=== PATIENT | female | born 1995 | race Caucasian/White ===

== ENCOUNTER 2020-02-29 22:18 | Emergency (ER) | payer BC ==
[2020-02-29] MEDS ORDERED: METHYLPREDNISOLONE INJ 125 MG/2 ML SDV IV ONE (22:25)
[2020-02-29] MEDS ORDERED: FAMOTIDINE INJ/PF 20 MG/2 ML SDV IV ONE (22:25)
[2020-02-29] MEDS ORDERED: DIPHENHYDRAMINE HCL 50 MG/ML VIAL IV ONE (22:26)
--- NOTE | 2020-02-29 22:27 | ER Document Report ---
ED Medical Screen (RME) - General Stated Complaint: ALLERGIC REACTION Time Seen by Provider: 02/29/20 22:25 Notes: HPI: 24-year-old female presenting for generalized hives, sensation of throat closing, swelling around the mouth. Ate a new restaurant tonight. Only allergy otherwise his cats no medication allergies. Took 1 Benadryl at home. Symptoms started about an hour ago. PHYSICAL EXAMINATION: Patient with erythema and very slight swelling to the lips. She has generalized hives over the neck and anterior chest. No stridor. Phonation is normal. Lung sounds are clear to auscultation without wheezing. No uvula edema. Discussed with [place] charge nurse regarding need for placement I have greeted and performed a rapid initial assessment of this patient. A comprehensive ED assessment and evaluation of the patient, analysis of test results and completion of medical decision making process will be conducted by an additional ED providers.
[2020-02-29] MEDS ORDERED: EPINEPHRINE INJ/PF 1 MG/1 ML AMPULE IM ONE (22:48)
--- NOTE | 2020-02-29 22:49 | ER Document Report ---
ED Allergic Reaction - General Chief Complaint: Allergic Reaction Stated Complaint: ALLERGIC REACTION Time Seen by Provider: 02/29/20 22:25 Primary Care Provider: [facility] [Provider Group] - Follow up in 3-5 days (for outpatient follow up) - HPI Notes: 24-year-old female to the emergency department with complaints of circumoral erythema and edema, lip edema, hives to the chest, back, and arms that began fairly quickly after she started eating a pizza tonight. She states she has never eaten at this pizza place. She states that the pizza had marinara sauce, cheese, blood, pepperoni on it. She states she has had all these things in the past and never had a reaction. She denies any other food allergies. She states she is only allergic to cats. She does admit to some tongue tingling as well as a little bit of feeling that her throat is closing. Denies any shortness of breath or wheezing. Denies any nausea or vomiting. She denies any dizziness. She is never had anything like this happen before. She did take 1 Benadryl prior to arrival which did not help her symptoms. - Related Data Allergies/Adverse Reactions: No Known Allergies Allergy (Unverified 02/29/20 23:07) Past Medical History - General Information source: Patient - Social History Smoking Status: Never Smoker Frequency of alcohol use: Occasional Drug Abuse: None Family History: Reviewed & Not Pertinent Review of Systems - Review of Systems Constitutional: denies: Chills, Fever EENT: Other - Sensation of throat closing, lip edema, circumoral edema and erythema; tongue tingling Cardiovascular: denies: Chest pain, Palpitations, Heart racing, Orthopnea, Syncope, Dizziness, Lightheaded Respiratory: denies: Cough, Short of breath Gastrointestinal: denies: Abdominal pain, Diarrhea, Nausea, Vomiting Musculoskeletal: No symptoms reported Skin: Change in color, Rash - See HPI Hematologic/Lymphatic: No symptoms reported Neurological/Psychological: No symptoms reported -: Yes All other systems reviewed and negative Physical Exam - Vital signs Vitals: Temp Pulse Resp BP Pulse Ox 98.0 F 73 16 125/88 H 100 02/29/20 22:26 02/29/20 22:26 02/29/20 22:26 02/29/20 22:26 02/29/20 22:26 Interpretation: Normal - General General appearance: Alert, Anxious - HEENT Head: Normocephalic External canal: Normal. No: Blood in canal Tympanic membrane: Normal. No: Bulging, Hemotympanum, Injected, Perforation Nasal: Normal. No: Bloody discharge, Swelling Notes: There is erythema and edema surrounding the mouth lower lip edema to suggest mild angioedema. Tongue does not appear edematous. Uvula is nonedematous. There is no crowding in the posterior oropharynx. Airway appears grossly patent. See skin to discuss hives - Respiratory Respiratory status: No respiratory distress. No: Respiratory distress Chest status: Nontender. No: Accessory muscle use, Prolonged expirations Breath sounds: Normal. No: Rales, Rhonchi, Wheezing Chest palpation: Normal - Cardiovascular Rhythm: Regular Heart sounds: Normal auscultation Murmur: No - Abdominal Inspection: Normal Distension: No distension Bowel sounds: Normal Tenderness: Nontender. No: McBurney's point, Reyes's sign, Guarding, Rebound Organomegaly: No organomegaly - Back Back: Normal, Nontender. No: CVA tenderness, Vertebra tenderness - Neurological Neuro grossly intact: Yes Cognition: Normal Orientation: AAOx4 Aleksandar Coma Scale Eye Opening: Spontaneous Holden Coma Scale Verbal: Oriented Aleksandar Coma Scale Motor: Obeys Commands Holden Coma Scale Total: 15 Speech: Normal Cranial nerves: Normal Cerebellar coordination: Normal Motor strength normal: LUE, RUE, LLE, RLE Additional motor exam normals: Equal oracle applications developer Sensory: Normal - Psychological Associated symptoms: Normal affect, Normal mood - Skin Skin Temperature: Warm Skin Moisture: Dry Notes: There are raised erythematous wheals to the left neck, anterior chest, upper back, bilateral forearms. There is also involvement underneath the breast. There is no rash to the abdomen or legs. These are consistent with hives. There is no desquamation, vesicles, necrosis, sloughing, discharge, streaking lymphangitis. Course - Re-evaluation Re-evalutation: 03/01/20 00:03 Rounded on the patient. She has had epinephrine for about an hour and a half n ow. She feels a lot better. Her lip swelling has decreased significantly and she started to have dulling of the erythema around her mouth. Hives to the chest have also decreased. She states that the sensation that her throat is tight is gone as well as the tingling in her tongue. We will continue to monitor for total of 3 hours. Patient agrees with the plan. 03/01/20 01:34 Patient has done very well the emergency department today. She has had further decrease in lip swelling and erythema around the mouth. She states she feels a lot better. Plan will be to discharge with steroid Dosepak, Pepcid, Atarax, EpiPen. Patient agrees with the plan. We will have her follow with primary care and then referral to airline pilot/first officer. Have advised to not eat anything like what she had on a pizza. Patient agrees with plan. Also advised that if she has worsening symptoms and significant lip swelling, shortness of breath, wheezing that she should give herself EpiPen and then come directly emergency department. She agrees. - Vital Signs Vital signs: Temp Pulse Resp BP Pulse Ox 98.0 F 73 15 114/62 100 02/29/20 22:26 02/29/20 22:26 03/01/20 00:01 03/01/20 00:01 03/01/20 00:01 Discharge - Discharge Clinical Impression: Hives Allergic reaction Qualifiers: Encounter type: initial encounter Qualified Code(s): T78.40XA - Allergy, unspecified, initial encounter Angioedema Qualifiers: Encounter type: initial encounter Qualified Code(s): T78.3XXA - Angioneurotic edema, initial encounter Condition: Stable Disposition: HOME, SELF-CARE Instructions: Acute Allergic Reaction ([facility]) Additional Instructions: Take steroids as prescribed. Continue to use Pepcid and use Atarax. Return if worsening symptoms such as increasing swelling of the lips, tongue swelling, difficulty breathing, wheezing, worsening hives, dizziness, nausea, vomiting, diarrhea. You will be written for an EpiPen today. You will use this in case you have another exposure and have lip swelling and shortness of breath. Once you use an EpiPen you need to come directly to the emergency department. Follow-up with [facility] for outpatient primary care and also for referral to airline pilot/first officer. Prescriptions: Hydroxyzine HCl [Atarax 10 mg Tablet] 20 mg PO Q6H #20 tablet Epinephrine [Epipen 2-Noah] 0.3 mg IM PRN PRN #1 ml PRN Reason: Methylprednisolone [Medrol Dosepack (4 mg/Tab) 21 Tab/Dosepak] 4 mg PO ASDIR PRN #21 tab.ds.pk PRN Reason: Famotidine [Pepcid 20 mg Tablet] 20 mg PO DAILY #12 tablet Referrals: [facility] [Provider Group] - Follow up in 3-5 days (for outpatient follow up)
[2020-03-01 01:48] VITALS: BP 122/64
== END 2020-03-01 01:49 | disposition home or self-care (01) ==
LOC: ER 22:18
DX: T78.1XXA Other adverse food reactions, not elsewhere classified, initial encounter (principal); T78.3XXA Angioneurotic edema, initial encounter; R09.89 Other specified symptoms and signs involving the circulatory and respiratory systems; K13.29 Other disturbances of oral epithelium, including tongue; R21 Rash and other nonspecific skin eruption; R06.02 Shortness of breath
CPT/HCPCS: 99284; 96372; 96374; 96375; J1200; J0171; J2930; S0028

== ENCOUNTER 2020-04-28 15:15 | Emergency (ER) | payer BC ==
--- NOTE | 2020-04-28 17:00 | ER Document Report ---
ED Medical Screen (RME) - General Chief Complaint: Neck Swelling Stated Complaint: RASH AND SWELLING Time Seen by Provider: 04/28/20 16:45 Mode of Arrival: Ambulatory Information source: Patient - HPI Patient complains to provider of: rash Notes: 04/28/20 16:58 Patient here with complaints of rash and lymph node swelling. The patient states she has had swelling to her lymph nodes around her neck and under her chin for the last week. She states that she went to urgent care and was started on amoxicillin. She now has a rash around her eyes, mouth, ears and between her legs. She denies fever. She denies chest pain or shortness of breath. She denies nausea, vomiting, diarrhea. Exam: Nontoxic, no distress. Lungs clear and equal throughout. Heart sounds normal. Ear exam normal. Throat exam normal. Bilateral anterior cervical and submental lymphadenopathy with mild tenderness. Mild conjunctivitis. Redness/cracking skin around the eyes mouth ears in the fold of her anterior neck. An initial examination was made on the patient as part of the triage process, and it was determined a more comprehensive evaluation was necessary. Initial orders were placed and patient was transferred to another provider in the ED who assumed care and finished evaluation and plan. - Related Data Allergies/Adverse Reactions: No Known Allergies Allergy (Unverified 02/29/20 23:07) Home Medications: BCP Past Medical History - Social History Chew tobacco use (# tins/day): No Frequency of alcohol use: Rare Drug Abuse: None Physical Exam - Vital signs Vitals: Temp Pulse Resp BP Pulse Ox 97.6 F 93 17 135/89 H 98 04/28/20 15:47 04/28/20 15:47 04/28/20 15:47 04/28/20 15:47 04/28/20 15:47 Course - Vital Signs Vital signs: Temp Pulse Resp BP Pulse Ox 97.6 F 93 17 135/89 H 98 04/28/20 15:47 04/28/20 15:47 04/28/20 15:47 04/28/20 15:47 04/28/20 15:47
--- NOTE | 2020-04-28 17:19 | RADIOLOGY REPORT (SQ) ---
EXAM DESCRIPTION: CHEST 2 VIEWS IMAGES COMPLETED DATE/TIME: 04/28/2020 5:07 pm REASON FOR STUDY: rash COMPARISON: None. EXAM PARAMETERS: NUMBER OF VIEWS: two views TECHNIQUE: Digital Frontal and Lateral radiographic views of the chest acquired. RADIATION DOSE: NA LIMITATIONS: none FINDINGS: LUNGS AND PLEURA: No opacities, masses or pneumothorax. No pleural effusion. MEDIASTINUM AND HILAR STRUCTURES: No masses or contour abnormalities. HEART AND VASCULAR STRUCTURES: Heart normal size. No evidence for failure. BONES: No acute findings. HARDWARE: None in the chest. OTHER: Bilateral nipple rings. IMPRESSION: 1. NO ACUTE RADIOGRAPHIC FINDING IN THE CHEST. TECHNICAL DOCUMENTATION: JOB ID: [id number] 2010 [employer]- All Rights Reserved Reading location - IP/workstation name: [email or web address]
[2020-04-28 17:59] LABS: ABSOLUTE BASOPHILS # (AUTO) 0.1 10^3/uL (0.0-0.2); ABSOLUTE EOSINOPHILS # (AUTO) 0.1 10^3/uL (0.0-0.6); ABSOLUTE LYMPHOCYTES (AUTO) 1.6 10^3/uL (0.5-4.7); ABSOLUTE MONOCYTES (AUTO) 0.6 10^3/uL (0.1-1.4); ABSOLUTE NEUT (AUTO) 4.1 10^3/uL (1.7-8.2); BASOPHILS % (AUTO) 0.9 % (0-2); EOSINOPHILS % (AUTO) 1.5 % (0-6); HEMOGLOBIN 13.9 g/dL (12.0-15.5); LYMPHOCYTES % (AUTO) 24.3 % (13-45); MEAN CORPUSCULAR HEMOGLOBIN 29.4 pg (27.0-33.4); MEAN CORPUSCULAR HGB CONC 34.7 g/dL (32.0-36.0); MEAN CORPUSCULAR VOLUME 85 fl (80-97); MONOCYTES % (AUTO) 8.9 % (3-13); PLATELET COUNT 321 10^3/uL (150-450); RED BLOOD COUNT 4.71 10^6/uL (3.72-5.28); RED CELL DISTRIBUTION WIDTH 13.8 % (11.5-14.0); SEGMENTED NEUTROPHILS % (AUTO) 64.4 % (42-78); TOTAL CELLS COUNTED % (AUTO) 100 %; WHITE BLOOD COUNT 6.4 10^3/uL (4.0-10.5)
[2020-04-28 18:18] LABS: ALBUMIN 4.3 g/dL (3.5-5.0); ALKALINE PHOSPHATASE 62 U/L (38-126); ANION GAP 10 (5-19); ASPARTATE AMINO TRANSFERASE 21 U/L (14-36); BILIRUBIN,DIRECT 0.2 mg/dL (0.0-0.4); BILIRUBIN,TOTAL 0.3 mg/dL (0.2-1.3); BLOOD UREA NITROGEN 10 mg/dL (7-20); CALCIUM 9.4 mg/dL (8.4-10.2); CARBON DIOXIDE 25 mmol/L (22-30); CHLORIDE 103 mmol/L (98-107); GLUCOSE 87 mg/dL (75-110); TOTAL PROTEIN 8.1 g/dL (6.3-8.2)
[2020-04-28 18:37] LABS: ERYTHROCYTE SEDIMENTATION RATE 36 mm/hr (0-20)
--- NOTE | 2020-04-29 00:40 | ER Document Report ---
ED Neck/Back Problem - General Chief Complaint: Neck Swelling Stated Complaint: RASH AND SWELLING Time Seen by Provider: 04/28/20 16:45 Mode of Arrival: Ambulatory Information source: Patient Notes: [facility] - General Chief Complaint: Neck Swelling Stated Complaint: RASH AND SWELLING Time Seen by Provider: 04/28/20 16:45 Mode of Arrival: Ambulatory Information source: Patient - HPI Patient complains to provider of: rash Notes: 04/28/20 16:58 Patient here with complaints of rash and lymph node swelling. The patient states she has had swelling to her lymph nodes around her neck and under her chin for the last week. She states that she went to urgent care and was started on amoxicillin. She now has a rash around her eyes, mouth, ears and between her legs. She denies fever. She denies chest pain or shortness of breath. She d enies nausea, vomiting, diarrhea. Exam: Nontoxic, no distress. Lungs clear and equal throughout. Heart sounds normal. Ear exam normal. Throat exam normal. Bilateral anterior cervical and submental lymphadenopathy with mild tenderness. Mild conjunctivitis. Redness/cracking skin around the eyes mouth ears in the fold of her anterior neck. MY NOTES 24 year old female arrives with her boyfriend with chief complaint of awakening on 24 April with bilateral neck pain. Also patient advises she waited 2 to 3 days to see if they self resolved and when they did not she noticed that she began to have lymph nodes underneath her chin. Patient also advises she was feeling exceptionally tired. She then went to urgent care where they wrote her for some amoxicillin then she began to break out in hives over her eyes mouth between her thighs. She denies any abdominal pain or abdominal edema or big liver or big spleen. Patient denies any new foods any new drinks a new sex partners. Her boyfriend is in the room with her. Patient denies any new pets a new plants in the house or new toothpaste or deodorant or soaps or shampoos or skin creams. Patient reports she did have mono when she was 13 years old and the seventh grade. - HPI Patient complains to provider of: Neck. No: Pain Onset: Last week Where: Home. No: Indoors Onset: Sudden Timing: Worse Severity: Mild Pain Level: 1 Recent injury: No Similar symptoms previously: Yes Recently seen / treated by doctor: Yes - Related Data Allergies/Adverse Reactions: No Known Allergies Allergy (Unverified 02/29/20 23:07) Home Medications: BCP Past Medical History - General Information source: Patient - Social History Smoking Status: Never Smoker Chew tobacco use (# tins/day): No Frequency of alcohol use: Rare Drug Abuse: None Family History: Reviewed & Not Pertinent Physical Exam - Vital signs Vitals: Temp Pulse Resp BP Pulse Ox 97.6 F 93 17 135/89 H 98 04/28/20 15:47 04/28/20 15:47 04/28/20 15:47 04/28/20 15:47 04/28/20 15:47 Interpretation: Normal - General General appearance: Appears well, Alert - HEENT Head: Normocephalic, Other - Perioral and periorbital erythema and edema as well as crusting around right lip fissure. perleche patient denies any herpetic lesions but does have a sore on the tip of her tongue nonherpetic.. Eyes: Normal Pupils: PERRL Ears: Normal External canal: Normal Tympanic membrane: Normal Sinus: Normal Nasal: Normal - Respiratory Respiratory status: No respiratory distress Chest status: Nontender Breath sounds: Normal Chest palpation: Normal - Cardiovascular Rhythm: Regular Heart sounds: Normal auscultation Murmur: No - Abdominal Inspection: Normal Distension: No distension Bowel sounds: Normal Tenderness: Nontender Organomegaly: No organomegaly - Back Back: Normal, Nontender - Extremities General upper extremity: Normal inspection, Nontender, Normal color, Normal ROM, Normal temperature General lower extremity: Normal inspection, Nontender, Normal color, Normal ROM, Normal temperature, Normal weight bearing. No: Deanne's sign - Neurological Neuro grossly intact: Yes Cognition: Normal Orientation: AAOx4 Aleksandar Coma Scale Eye Opening: Spontaneous Aleksandar Coma Scale Verbal: Oriented Aleksandar Coma Scale Motor: Obeys Commands Aleksandar Coma Scale Total: 15 Speech: Normal Motor strength normal: LUE, RUE, LLE, RLE Sensory: Normal - Psychological Associated symptoms: Normal affect, Normal mood - Skin Skin Temperature: Warm Skin Moisture: Dry Skin Color: Normal Course - Vital Signs Vital signs: Temp Pulse Resp BP Pulse Ox 97.6 F 93 17 135/89 H 98 04/28/20 15:47 04/28/20 15:47 04/28/20 15:47 04/28/20 15:47 04/28/20 15:47 - Laboratory Results Result Diagrams: 04/28/20 17:40 04/28/20 17:40 Laboratory Results Interpreted: 04/28/20 17:40 ESR 36 H Critical Laboratory Results Reviewed: Yes Attending or Supervising Physician who Reviewed Labs: MAURICE PETERSON JR - Radiology Results Critical Radiology Results Reviewed: Yes Attending or Supervising Physician who Reviewed Radiology: MAURICE PETERSON JR Critical Care Note - Critical Care Note Comments: I discussed labs and CT findings with patient and boyfriend at her request and authorization Discharge - Discharge Clinical Impression: Allergic urticaria, Lymphadenopathy of head and neck, Acute viral syndrome Condition: Stable Disposition: HOME, SELF-CARE Additional Instructions: Hold your amoxicillin/avoid taking amoxicillin while having a viral syndrome. Return to ER as needed ;take medicines as directed ;encourage fluids use cool compresses to your face and neck to avoid increased hives. Hot showers will increase your tendency to have hives and allergic reaction at this time. Follow-up with personal doctor about your lymph nodes as well. Prescriptions: Hydroxyzine HCl [Atarax 10 mg Tablet] 10 mg PO TID PRN #30 tablet PRN Reason: Dexamethasone [Decadron 4 Mg Tablet] 4 mg PO DAILY #5 tablet Famotidine [Pepcid 20 mg Tablet] 20 mg PO BID #12 tablet Forms: Return to Work
[2020-04-29] MEDS ORDERED: FAMOTIDINE 20 MG TABLET PO ONE (01:08)
[2020-04-29] MEDS ORDERED: DEXAMETHASONE 4 MG TABLET PO ONE (01:08)
[2020-04-29] MEDS ORDERED: HYDROXYZINE HCL 10 MG TABLET PO ONE (01:08)
--- NOTE | 2020-04-29 02:16 | RADIOLOGY REPORT (SQ) ---
EXAM DESCRIPTION: CT NECK WITHOUT IV CONTRAST COMPLETED DATE/TME: 04/29/2020 01:34 CLINICAL HISTORY: 24 years, Female, lymph nodes COMPARISON: None. TECHNIQUE: 292 Images stored on PACS. All CT scanners at this facility use dose modulation, iterative reconstruction, and/or weight based dosing when appropriate to reduce radiation dose to as low as reasonably achievable (ALARA). [facility]: Dose Right [facility]: CareDose [facility]: Dose Right [facility]: Teradose 4D [facility]: [employer] LIMITATIONS: None. FINDINGS: Limited evaluation of brain parenchyma is unremarkable. Mildly prominent adenoid tissue of the posterior nasopharynx. Limited evaluation of the upper thorax shows calcified mediastinal lymph nodes. The airway is widely patent. The epiglottis is normal. The prevertebral soft tissues are normal. The globes are intact. The paranasal sinuses are well aerated. There are multiple nonenlarged to mildly enlarged intraparotid chain lymph nodes bilaterally. Nonenlarged jugulodigastric chain and posterior triangle chain lymph nodes are present bilaterally. A few enlarged jugulodigastric chain nodes are also present, the largest on the right, measuring 1.6 x 1.4 cm. Other nonenlarged to borderline enlarged submandibular chain, submental chain lymph nodes are also present. IMPRESSION: Scattered nonenlarged to mildly enlarged cervical chain lymph nodes are present bilaterally. Findings may reflect nonspecific cervical adenitis. Close clinical follow-up recommended. Mild prominent adenoid tissue posterior nasopharynx. TECHNICAL DOCUMENTATION: Quality ID # [id number]: Final reports with documentation of one or more dose reduction techniques (e.g., Automated exposure control, adjustment of the mA and/or kV according to patient size, use of iterative reconstruction technique) copyright 2011 [employer]- All Rights Reserved
[2020-04-29 03:16] VITALS: BP 122/71
[2020-04-30 09:35] LABS: CYTOMEGALOVIRUS IGG AB <0.60 U/mL (0.00-0.59); CYTOMEGALOVIRUS IGM AB <30.0 AU/mL (0.0-29.9)
[2020-05-01 07:33] LABS: EPSTEIN BARR NUCLEAR AG IGG AB >600.0 U/mL (0.0-17.9); EPSTEIN BARR VCA IGG AB >600.0 U/mL (0.0-17.9); EPSTEIN BARR VCA IGM AB <36.0 U/mL (0.0-35.9)
== END 2020-04-29 03:14 | disposition home or self-care (01) ==
LOC: ER 15:15
DX: L50.0 Allergic urticaria (principal); B34.9 Viral infection, unspecified; R59.0 Localized enlarged lymph nodes; R53.83 Other fatigue; Z79.3 Long term (current) use of hormonal contraceptives
CPT/HCPCS: 99285; 36415; 87070; 86665 ×2; 86664; 87880; 85025; 85652; 86308; 80053; 86644; 71046; 70490; J8540